=== PATIENT | female | born 1990 | race Caucasian/White ===

== ENCOUNTER 2017-09-07 12:07 | Emergency (ER) | payer OTHER ==
[~2017-09-07] VITALS: Ht 170.2 cm; Wt 66.7 kg
[2017-09-07 12:20] VITALS: Ht 170.2 cm; Wt 66.7 kg
[2017-09-07 15:44] VITALS: BP 119/73
== END 2017-09-07 15:44 | disposition home or self-care (01) ==
LOC: ED 12:07
DX: J02.9 Acute pharyngitis, unspecified (principal); J98.01 Acute bronchospasm; R07.9 Chest pain, unspecified; F17.210 Nicotine dependence, cigarettes, uncomplicated; Z71.6 Tobacco abuse counseling
CPT/HCPCS: 99406; J2930; J7613; J7644; Q0162

== ENCOUNTER 2018-01-22 16:27 | Emergency (ER) | payer MEDICAID ==
[~2018-01-22] VITALS: Ht 172.7 cm; Wt 70.8 kg
[2018-01-22 16:59] VITALS: Ht 172.7 cm; Wt 70.8 kg
[2018-01-22 21:56] VITALS: BP 110/74
== END 2018-01-22 21:56 | disposition home or self-care (01) ==
LOC: ED 16:27
DX: L73.9 Follicular disorder, unspecified (principal)